=== PATIENT | male | born 1985 | race Two or more races ===

== ENCOUNTER 2019-02-23 12:43 | Emergency (ER) | payer MEDICAID ==
[~2019-02-23] VITALS: Ht 165.1 cm; Wt 102.1 kg
--- NOTE | 2019-02-23 12:50 | NUR ---
CAME IN FOR HEADACHE X4 DAYS AND CHEST PAIN ACHING SENSATION, NON-RADIATING PS 6/10, TO ER BED 2, HOOKED TO MONITOR, CHANGED TO HOSPITAL GOWN, AWAITING MD YOON.
--- NOTE | 2019-02-23 14:39 | NUR ---
TRINA WILSON AT BEDSIDE
[2019-02-23] MEDS ORDERED: IBUPROFEN 600 MG TABLET PO ONE ×3 (15:00→15:22)
[2019-02-23] MEDS ORDERED: ACETAMINOPHEN ES 500 MG TABLET PO ONE (15:00)
[2019-02-23] MEDS ORDERED: ACETAMINOPHEN ES 500 MG TABLET ONE (15:21)
[2019-02-23 16:07] VITALS: BP 126/77
--- NOTE | 2019-02-23 16:07 | NUR ---
Patient discharged to home in stable condition. Written and verbal after care instructions given. Patient verbalizes understanding of instruction.
== END 2019-02-23 16:07 | disposition home or self-care (01) ==
LOC: ER 12:46
DX: R51 Headache (principal); R07.89 Other chest pain
CPT/HCPCS: 71045-TC

== ENCOUNTER 2019-05-09 20:55 | Emergency (ER) | payer MEDICAID ==
[~2019-05-09] VITALS: Ht 167.6 cm; Wt 97.5 kg
--- NOTE | 2019-05-09 21:30 | NUR ---
BIBS FOR C/O MIDSTERNAL CP X 1 WK WORSE TODAY. - SOB. - PAST CARDIAC DIS. -N/V. NON RADIATING. PLACED O NA MONITOR, VSS. WILL CONT TO MONITOR,
[2019-05-09] MEDS ORDERED: LIDOCAINE VISCOUS 2% UD 15 ML UDC ONE (21:51)
[2019-05-09] MEDS ORDERED: MAG HYDROX/AL HYDROX/SIMETH 30 ML UDC ONE (21:51)
[2019-05-09] MEDS ORDERED: LIDOCAINE VISCOUS 2% UD 15 ML UDC MM ONE (22:00)
[2019-05-09] MEDS ORDERED: MAG HYDROX/AL HYDROX/SIMETH 30 ML UDC PO ONE (22:00)
[2019-05-09 22:56] VITALS: BP 116/72
--- NOTE | 2019-05-09 22:56 | NUR ---
Patient discharged to home in stable condition. Written and verbal after care instructions given. Patient verbalizes understanding of instruction.
== END 2019-05-09 22:57 | disposition home or self-care (01) ==
LOC: ER 21:00
DX: R07.89 Other chest pain (principal); K21.9 Gastro-esophageal reflux disease without esophagitis
CPT/HCPCS: 71045-TC

== ENCOUNTER 2020-11-14 15:27 | Emergency (ER) | payer MEDICAID ==
[~2020-11-14] VITALS: Ht 167.6 cm; Wt 93.4 kg
[2020-11-14 15:39] VITALS: BP 149/114
--- NOTE | 2020-11-14 15:45 | NUR ---
PATIENT bibs c/o throat pain x 2 weeks. no s/o any acute distress. Able to communicate needs. denies pain at this time. breathing even and unlabored. will continue with plan of care
[2020-11-14] MEDS ORDERED: AZIT1PAC PO (16:49)
--- NOTE | 2020-11-14 17:24 | NUR ---
Patient discharged to home in stable condition. Written and verbal after care instructions given. Patient verbalizes understanding of instruction.
== END 2020-11-14 17:24 | disposition home or self-care (01) ==
LOC: ER 15:27
DX: R59.1 Generalized enlarged lymph nodes (principal); F12.90 Cannabis use, unspecified, uncomplicated

== ENCOUNTER 2021-03-08 08:41 | Emergency (ER) | payer MEDICAID ==
[~2021-03-08] VITALS: Ht 167.6 cm; Wt 86.2 kg
[~2021-03-08 08:41] MED LIST: AZIT1PAC PO
[2021-03-08 08:47] VITALS: BP 119/64
[2021-03-08] MEDS ORDERED: AMOX-430 PO (09:12)
[2021-03-08] MEDS ORDERED: IBUP-1953 PO (09:14)
== END 2021-03-08 09:31 | disposition home or self-care (01) ==
LOC: ER 08:41
DX: K02.9 Dental caries, unspecified (principal); F17.200 Nicotine dependence, unspecified, uncomplicated